=== PATIENT | male | born 1960 | race American Indian/Alaskan Native ===

== ENCOUNTER 2021-10-05 05:55 | Emergency (ER) | payer SELFPAY ==
[2021-10-05] MEDS ORDERED: KETOROLAC 10 MG TAB PO ONE (09:35)
[2021-10-05] MEDS ORDERED: predniSONE 20 MG TAB PO ONE (09:35)
[2021-10-05] MEDS ORDERED: AMOXICILLIN 500 MG CAP PO ONE (09:41)
--- NOTE | 2021-10-05 09:48 | Emergency Department Report ---
ED ENT HPI - General Chief complaint: Headache Stated complaint: NASEL ISSUES Time Seen by Provider: 10/05/21 08:54 Source: patient Mode of arrival: Ambulatory Limitations: No Limitations - History of Present Illness Initial comments: 61-year-old black male presents to the emergency department for evaluation of 3- week history of congestion. He states that he has been taken Claritin, Sudafed, and using Flonase without any improvement. He denies fevers or shortness of breath. MD complaint: other (Nasal congestion) -: Gradual, week(s) (3) Severity scale (0 -10): 0 Associated Symptoms: cough, pain with swallowing, sore throat, rhinorrhea. denies: fever, gum swelling, toothache, tinnitus, hearing loss, discharge from ear - Related Data Previous Rx's Medication Instructions Recorded Last Taken Type Benzonatate [Tessalon Perles] 100 mg PO Q8HR #15 capsule 01/16/16 Unknown Rx Amoxicillin [Amoxicillin TAB] 875 mg PO BID 7 Days #14 tab 10/05/21 Unknown Rx predniSONE [Deltasone] 50 mg PO QDAY 5 Days #5 tab 10/05/21 Unknown Rx Allergies Allergy/AdvReac Type Severity Reaction Status Date / Time No Known Allergies Allergy Unverified 01/16/16 09:25 ED Dental HPI - General Chief complaint: Headache Stated complaint: NASEL ISSUES Time Seen by Provider: 10/05/21 08:54 Source: patient Mode of arrival: Ambulatory Limitations: No Limitations - Related Data Previous Rx's Medication Instructions Recorded Last Taken Type Benzonatate [Tessalon Perles] 100 mg PO Q8HR #15 capsule 01/16/16 Unknown Rx Amoxicillin [Amoxicillin TAB] 875 mg PO BID 7 Days #14 tab 10/05/21 Unknown Rx predniSONE [Deltasone] 50 mg PO QDAY 5 Days #5 tab 10/05/21 Unknown Rx Allergies Allergy/AdvReac Type Severity Reaction Status Date / Time No Known Allergies Allergy Unverified 01/16/16 09:25 ED Review of Systems ROS: Stated complaint: NASEL ISSUES Other details as noted in HPI Comment: All other systems reviewed and negative Constitutional: denies: chills, fever Eyes: denies: eye discharge, vision change ENT: congestion Respiratory: cough. denies: shortness of breath, SOB with exertion, SOB at rest, stridor, wheezing Cardiovascular: denies: chest pain, palpitations Gastrointestinal: denies: abdominal pain, nausea, vomiting Genitourinary: denies: urgency, dysuria Musculoskeletal: denies: back pain Skin: denies: rash, lesions Neurological: denies: headache, weakness ED Past Medical Hx - Past Medical History Hx Asthma: Yes (CHILD) - Social History Smoking Status: Current Every Day Smoker Substance Use Type: Alcohol - Medications Home Medications: Home Medications Medication Instructions Recorded Confirmed Last Taken Type Benzonatate [Tessalon Perles] 100 mg PO Q8HR #15 capsule 01/16/16 Unknown Rx Amoxicillin [Amoxicillin TAB] 875 mg PO BID 7 Days #14 tab 10/05/21 Unknown Rx predniSONE [Deltasone] 50 mg PO QDAY 5 Days #5 tab 10/05/21 Unknown Rx ED Physical Exam - General Limitations: No Limitations General appearance: alert, in no apparent distress - Head Head exam: Present: atraumatic, normocephalic - Eye Eye exam: Present: normal appearance. Absent: conjunctival injection, periorbital swelling, periorbital tenderness - ENT ENT exam: Present: TM's normal bilaterally, normal external ear exam. Absent: normal exam (Bilateral nasal mucosal edema along with turbinate swelling), normal orophraynx (Erythema noted to posterior oropharynx) - Expanded ENT Exam Expanded Throat exam: Negative: tonsillar erythema, tonsillomegaly, tonsillar exudate, R peritonsillar mass, L peritonsillar mass - Neck Neck exam: Present: normal inspection, full ROM. Absent: tenderness, lymphadenopathy - Respiratory Respiratory exam: Present: normal lung sounds bilaterally. Absent: respiratory distress, wheezes, rales, rhonchi, stridor, chest wall tenderness - Cardiovascular Cardiovascular Exam: Present: regular rate, normal heart sounds - GI/Abdominal GI/Abdominal exam: Present: soft, normal bowel sounds. Absent: distended, tenderness, rebound, rigid - Extremities Exam Extremities exam: Present: normal inspection, full ROM. Absent: tenderness, normal capillary refill, pedal edema, joint swelling, calf tenderness - Back Exam Back exam: Present: normal inspection. Absent: CVA tenderness (R), CVA tenderness (L) - Neurological Exam Neurological exam: Present: alert, oriented X3, CN II-XII intact, normal gait, reflexes normal. Absent: motor sensory deficit - Psychiatric Psychiatric exam: Present: normal affect, normal mood - Skin Skin exam: Present: warm, dry, intact, normal color ED Course Vital Signs 10/05/21 10/05/21 10/05/21 09:41 09:59 10:31 Temperature 98.1 F Pulse Rate 75 Respiratory 16 Rate Blood Pressure 158/106 [Left] O2 Sat by Pulse 95 99 97 Oximetry 10/05/21 10:34 Temperature Pulse Rate 78 Respiratory 20 Rate Blood Pressure 161/90 [Left] O2 Sat by Pulse 97 Oximetry ED Medical Decision Making - Medical Decision Making 61-year-old black male presents to the emergency department for evaluation of 3- week history of congestion. He states that he has been taken Claritin, Sudafed, and using Flonase without any improvement. He denies fevers or shortness of breath. Exam consistent with acute bacterial rhinosinusitis. Patient will be treated with 7-day course of amoxicillin along with prednisone and Tessalon perles. He is advised to take medications as directed and follow-up with his primary care provider if no improvement or worsening symptoms. He is advised to return to the emergency department as needed. He verbalizes understanding of and agreement with plan of care. Critical care attestation.: If time is entered above; I have spent that time in minutes in the direct care of this critically ill patient, excluding procedure time. ED Disposition Clinical Impression: Acute bacterial rhinosinusitis Disposition: 01 HOME / SELF CARE / HOMELESS Is pt being admited?: No Does the pt Need Aspirin: No Condition: Stable Instructions: Antibiotic Medicine, Adult, [id number], Sinusitis, Adult, [id number] Additional Instructions: Take medications as prescribed. Increase intake of noncaffeinated fluids. Follow-up with your primary care provider if no improvement or worsening symptoms. Return to the emergency department as needed. Prescriptions: Amoxicillin [Amoxicillin TAB] 875 mg PO BID 7 Days #14 tab predniSONE [Deltasone] 50 mg PO QDAY 5 Days #5 tab Referrals: LAURYN SMITH MD [Primary Care Provider] - 3-5 Days Forms: Work/School Release Form(ED) Time of Disposition: 09:48
[2021-10-05 10:34] VITALS: BP 161/90
== END 2021-10-05 10:34 | disposition home or self-care (01) ==
LOC: ED 05:55
DX: J01.90 Acute sinusitis, unspecified (principal); B96.89 Other specified bacterial agents as the cause of diseases classified elsewhere; J45.909 Unspecified asthma, uncomplicated; F17.200 Nicotine dependence, unspecified, uncomplicated; Z72.89 Other problems related to lifestyle; Z79.899 Other long term (current) drug therapy
CPT/HCPCS: 99282